=== PATIENT | male | born 1990 | race Caucasian/White ===

== ENCOUNTER → 2018-05-20 13:42 | Outpatient (CLI) | payer OTHER, SELFPAY ==
[2018-05-20 14:00] LABS: Basophils % 0.7 % (0.1-2.0); Eosinophils # 0.3 K/mm3 (0.0-0.4); Eosinophils % 5.9 % (0.1-12.0); Hematocrit 49.6 % (42.0-52.0); Hemoglobin 16.2 g/dL (14.1-18.0); Lymphocytes # 1.7 K/mm3 (0.7-4.5); Lymphocytes % 35.5 % (10-50); Mean Corpuscular HGB Conc 32.7 g/dL (31.8-35.4); Mean Corpuscular Hemoglobin 29.9 pg (27.0-31.2); Mean Corpuscular Volume 91.4 fl (80-94); Mean Platelet Volume 7.8 fl (7.4-10.4); Monocytes # 0.3 K/mm3 (0.1-1.0); Monocytes % 5.9 % (1.7-9.3); Neutrophils # 2.5 K/mm3 (1.8-7.8); Neutrophils % 51.9 % (37.0-80.0); Platelet Count 248 K/mm3 (142-424); Red Blood Count 5.43 M/mm3 (4.60-6.20); White Blood Count 4.8 K/mm3 (4.8-10.8)
[2018-05-20 14:37] LABS: Alanine Aminotransferase 109 U/L (12-78); Albumin Level 4.7 gm/dL (3.4-5.0); Albumin/Globulin Ratio 1.2 (1.1-1.8); Alkaline Phosphatase 58 U/L (46-116); Anion Gap 13.2 mEq/L (5-15); Aspartate Amino Transferase 32 U/L (15-37); Bilirubin,Total 0.6 mg/dL (0.2-1.0); Blood Urea Nitrogen 14 mg/dL (7-18); Calcium 9.4 mg/dL (8.5-10.1); Carbon Dioxide 28 mmol/L (21.0-32.0); Chloride 102 mmol/L (98-107); Chol/HDL Ratio 4.5 (1-3.5); Cholesterol 221 mg/dL (140-200); Creatinine,Serum 0.86 mg/dL (0.70-1.30); Estimated Glomerular Filt Rate 105 ml/min (>60); GFR (African American) 127 ML/MIN (>60); Glucose 100 mg/dL (74-106); HDL Cholesterol 49 mg/dL (27-67); LDL Cholesterol 149 mg/dL (0-130); Potassium 4.2 mmoL/L (3.5-5.1); Sodium 139 mmol/L (136-145); T4 (Thyroxine) 8.9 ug/dl (4.7-13.3); Thyroid Stimulating Hormone 3.08 uIU/ml (0.358-3.740); Total Protein,Serum 8.7 gm/dL (6.4-8.2); Triglycerides 113 mg/dL (30-200); VLDL Cholesterol 23 mg/dL (0-40)
[2018-05-21 09:21] LABS: Hep A Ab, IgM Negative (Negative); Hepatitis B Core Antibody IgM Negative (Negative); Hepatitis B Surface Antigen Negative (Negative)
[2018-05-21 11:14] LABS: Hepatitis C Antibody >11.0 s/co ratio (0.0-0.9); Vitamin D 25 Hydroxy 30.2 ng/mL (30.0-100.0)
== END ==
PROVIDERS: Visit Provider Nurse Practitioner Family
DX: R46.89 Other symptoms and signs involving appearance and behavior (principal); Z76.89 Persons encountering health services in other specified circumstances; F31.81 Bipolar II disorder
CPT/HCPCS: 80053; 80061; 80074; 82652; 84436; 84443; 85025

== ENCOUNTER → 2018-06-05 09:14 | Outpatient (CLI) | payer OTHER, SELFPAY ==
[2018-06-07 16:19] LABS: HCV Genotype Charge YES; Hepatitis C Genotype 1a (.)
== END ==
PROVIDERS: Visit Provider Nurse Practitioner Family
DX: R74.8 Abnormal levels of other serum enzymes (principal)
CPT/HCPCS: 36415; 87522; 87902

== ENCOUNTER → 2018-08-28 09:14 | Outpatient (CLI) | payer OTHER, SELFPAY ==
[2018-08-28 09:32] LABS: Basophils % 0.5 % (0.1-2.0); Eosinophils # 0.1 K/mm3 (0.0-0.4); Eosinophils % 2.7 % (0.1-12.0); Hematocrit 47.8 % (42.0-52.0); Hemoglobin 16.1 g/dL (14.1-18.0); Lymphocytes # 1.4 K/mm3 (0.7-4.5); Lymphocytes % 35.2 % (10-50); Mean Corpuscular HGB Conc 33.7 g/dL (31.8-35.4); Mean Corpuscular Hemoglobin 30.4 pg (27.0-31.2); Mean Corpuscular Volume 90.2 fl (80-94); Mean Platelet Volume 7.7 fl (7.4-10.4); Monocytes # 0.3 K/mm3 (0.1-1.0); Monocytes % 7.6 % (1.7-9.3); Neutrophils # 2.2 K/mm3 (1.8-7.8); Platelet Count 230 K/mm3 (142-424); Red Cell Distribution Width 12.7 % (11.5-17.5); White Blood Count 4.1 K/mm3 (4.8-10.8)
[2018-08-28 11:44] LABS: Alanine Aminotransferase 33 U/L (12-78); Albumin Level 4.2 gm/dL (3.4-5.0); Albumin/Globulin Ratio 1.2 (1.1-1.8); Alkaline Phosphatase 60 U/L (46-116); Anion Gap 14.1 mEq/L (5-15); Aspartate Amino Transferase 20 U/L (15-37); Bilirubin,Total 0.5 mg/dL (0.2-1.0); Blood Urea Nitrogen 21 mg/dL (7-18); Calcium 9.3 mg/dL (8.5-10.1); Carbon Dioxide 29 mmol/L (21.0-32.0); Chloride 105 mmol/L (98-107); Creatinine,Serum 1.02 mg/dL (0.70-1.30); Estimated Glomerular Filt Rate 86 ml/min (>60); GFR (African American) 104 ML/MIN (>60); Globulin 3.5 gm/dl (1.3-3.2); Glucose 84 mg/dL (74-106); Potassium 4.1 mmoL/L (3.5-5.1); Sodium 144 mmol/L (136-145); Total Protein,Serum 7.7 gm/dL (6.4-8.2)
== END ==
PROVIDERS: Visit Provider Nurse Practitioner
DX: B18.2 Chronic viral hepatitis C (principal)
CPT/HCPCS: 36415; 80053; 85025

== ENCOUNTER → 2018-09-03 08:26 | Outpatient (CLI) | payer OTHER, SELFPAY ==
--- NOTE | 2018-09-03 08:33 | US_ITS ---
US abdomen limited History:Undergoing treatment for hepatitis C Ordering Physician:Deshawn Briceno Patient Age: 28 years Comparison:None Findings: Pancreas:Unremarkable. No obvious mass or abnormal fluid collection. No ductal dilatation Liver:No focal liver lesions demonstrated. Homogeneous echogenicity. No intrahepatic biliary ductal dilatation evident Right Kidney:Unremarkable. The right kidney measures 12.0 x 4.3 x 6.1 cm and appears sonographically normal. Gallbladder:The gallbladder is normal size and there is a tiny amount biliary sludge layering along the dependent wall near the neck of the gallbladder. There is no definite gallstones seen. The common bile duct measures 3 mm.. Impression: Small amount biliary sludge otherwise unremarkable study
== END ==
PROVIDERS: PCP Physician Assistant; Visit Provider Internal Medicine
DX: B18.2 Chronic viral hepatitis C (principal)
CPT/HCPCS: 76705

== ENCOUNTER → 2018-10-17 08:16 | Outpatient (CLI) | payer OTHER, SELFPAY ==
[2018-10-17 08:37] LABS: Basophils % 0.3 % (0.1-2.0); Eosinophils # 0.1 K/mm3 (0.0-0.4); Eosinophils % 1.8 % (0.1-12.0); Hematocrit 48.2 % (42.0-52.0); Hemoglobin 16.6 g/dL (14.1-18.0); Lymphocytes % 24.4 % (10-50); Mean Corpuscular HGB Conc 34.4 g/dL (31.8-35.4); Mean Corpuscular Hemoglobin 31.3 pg (27.0-31.2); Mean Platelet Volume 7.4 fl (7.4-10.4); Monocytes # 0.4 K/mm3 (0.1-1.0); Monocytes % 9.4 % (1.7-9.3); Neutrophils # 2.6 K/mm3 (1.8-7.8); Neutrophils % 64.1 % (37.0-80.0); Platelet Count 210 K/mm3 (142-424); Red Cell Distribution Width 12.6 % (11.5-17.5); White Blood Count 4.1 K/mm3 (4.8-10.8)
== END ==
PROVIDERS: Visit Provider Nurse Practitioner
DX: B18.2 Chronic viral hepatitis C (principal)
CPT/HCPCS: 36415; 85025; 87522

== ENCOUNTER 2020-02-23 16:10 | Emergency (ER) | payer OTHER, SELFPAY ==
[2020-02-23 16:17] VITALS: BP 148/93; PULSE 76; RESP 17; TEMP 36.8; O2SAT 98; BMI 28.2
--- NOTE | 2020-02-23 16:25 | HMH.EDGENADL ---
ED Disposition Clinical Impression: Abdominal muscle strain Qualifiers: Encounter type: initial encounter Qualified Code(s): S39.011A - Strain of muscle, fascia and tendon of abdomen, initial encounter Disposition: Home, Self-Care Condition on Discharge: Good Instructions: DI for Groin Hernia, DI for Acute Abdomen Additional Instructions: You have been evaluated for perennial pain, concerning for a muscle strain. Please return to the emergency department if you have any new or worsening pain in your lower abdomen or testicles. Testicular pain could be concerning for an emergency like torsion. Follow-up with your primary care physician in 1 to 2 days for symptom recheck. Referrals: Candace Reis PA [Primary Care Provider] - Forms: Work/School Release Time of Disposition: 16:41 - Critical Care Critical Care Time: No Attestation: On , the high probability of a clinically significant, sudden or life threatening deterioration of the following system(s) required my full and direct attention, intervention and personal management. The time I documented below is in addition to time spent performing reported procedures but includes the following listed in this critical care notation. Medical Decision Making - Medical Records Medical records reviewed: Yes: I reviewed the patient's medical records. - Rick Inquiry Pt receiving controlled substance: No Vital Signs: 02/23/20 16:17 Temperature 98.2 F Temperature Source Oral Pulse Rate [Right Radial] 76 Respiratory Rate 17 Blood Pressure [Right Arm] 148/93 H Blood Pressure Mean [Right Arm] 111 02 Sat by Pulse Oximetry 98 Medical Decision Narrative: In summary this is a 29-year-old male presenting to the emergency department with pain in his perineum. Patient is clinically stable on arrival. Vital signs are within normal limits. Physical exam does not show evidence of inguinal hernia on the right or the left. No obvious abnormality in the skin of the perineum. Patient's primary concern was hernia, no evidence of incarceration or strangulation. I offered him laboratory work, urinalysis, CT scan to assess for possible nephrolithiasis, diverticulosis, intra-abdominal abscess. Patient deferred. Clinical presentation does not sound like torsion. He specifically denied any testicular pain. Counseled him to follow-up with his PCP. Given strict return precautions. General Adult HPI - General Chief complaint: Abdominal Pain Stated complaint: Possible Hernia Time Seen by Provider: 02/23/20 16:32 Mode of Arrival: Ambulatory Limitations: No Limitations Description of Symptoms (Recalled from ER Triage Doc. by RN): pt states that since 1500 yesterday after lifting a heavy object he is having pain in between his testicles and his anus. pt states that it is a pulling feeling. pt states that this has happened before but it just got better on its own. pt states that he doesnt know what to do about it and he missed work today because of it. - History of Present Illness HPI narrative: 29-year-old male presenting to the emergency department with lower abdominal pain. Symptoms started yesterday afternoon while he was lifting a heavy lawnmower. Pain did not happen exactly at the time but started about 20 minutes afterward. Described as a pain that starts near his perineum, feels like a tugging sensation. He is concerned that he may have a hernia. Nothing like this is ever happened before. No changes in bowel habits. No changes in urinary habits. No pain with ejaculation or penile discharge. No new sexual partners. No recent illness, fevers, chills, nausea, vomiting. Pain improved significantly in a matter of minutes. Currently has pain with leg motion, worse on the left. - Related Data Previous Rx's Medication Instructions Recorded Meclizine HCl [Meclizine 25mg Tab] 25 mg PO BID PRN 7 Days #14 tab 06/09/19 oxcarbazepine 600 mg tablet 900 mg PO BID #90 tab
[2020-02-23 17:07] VITALS: BP 125/87; PULSE 74; RESP 14; TEMP 36.8; O2SAT 99
== END 2020-02-23 17:07 | disposition home or self-care (01) ==
PROVIDERS: Emergency Provider Emergency Medicine; PCP Physician Assistant
DX: S39.011A Strain of muscle, fascia and tendon of abdomen, initial encounter (principal); Z87.891 Personal history of nicotine dependence; X50.0XXA Overexertion from strenuous movement or load, initial encounter; Y92.9 Unspecified place or not applicable
CPT/HCPCS: 99281

== ENCOUNTER 2021-02-09 15:12 | Emergency (ER) | payer OTHER, SELFPAY ==
[2021-02-09 16:45] VITALS: BP 140/80; PULSE 70; RESP 19; TEMP 36.8; O2SAT 98; BMI 31.1
--- NOTE | 2021-02-09 16:50 | HMH.EDUTC ---
[facility] [place] Impression: Exposure to COVID-19 virus Disposition: Home, Self-Care Condition on Discharge: Good Instructions: DI for COVID-19 (Suspected or Confirmed ), Preventing the Spread of Coronavirus Discharge Instructions Additional Instructions: *Monitor Temp, Over the counter Motrin or Tylenol as directed/as needed Tylenol every 4 hours and Motrin every 6 hours (as long as your family doctor has told you that you can take it) for fever or pain. and straight to ER if unable to lower temp less than 101.0 after medication given Follow up IMMEDIATELY for new or worsening symptoms or no Noticeable improvement over the next 48-72 hours. 911 for difficulty breathing or swallowing You were tested for today for COVID19 your test result should be back in the next 24-48 hours, you was given instructions on how to log on the [facility] portal for your results. If you do not have internet or access you may call the [facility]. You was given a handout with instructions for Self Quarantine and Self isolation for while you wait on test results and what to do if they are positive If you are positive the Health Dept will be contacting you also Make sure to take your Vitamins Vit. C Vit D and Zinc if you can take them Referrals: Candace Reis PA [Primary Care Provider] - As needed Forms: Work/School Release Time of Disposition: 16:51 Medical Decision Making - Rick Inquiry Pt receiving controlled substance: No Rick was queried for this patient: No Vital Signs: 02/09/21 16:45 Temperature 98.2 F Temperature Source Oral Pulse Rate [Right] 70 Respiratory Rate 19 Blood Pressure [Right Arm] 140/80 Blood Pressure Mean [Right Arm] 100 02 Sat by Pulse Oximetry 98 Orders (Tests/Meds): ORDERS Category Date Time Status Covid-19 Nasal PCR ([facility]) Routine Lab 02/09/21 16:36 [place] [facility] [place] - General Stated complaint: Covid test Time Seen by Provider: 02/09/21 16:51 Description of Symptoms (Recalled from Triage Doc. by RN): COVIDE EXPOSURE AT WORK, DENIES SYMPTOMS HEENT Symptoms (Recalled from RN notes): No Resp Symptoms (Recalled from RN notes): No Skin Symptoms (Recalled from RN notes): No MS Symptoms (Recalled from RN notes): No Functional Status (Recalled from RN notes): WNL - History of Present Illness Provider Complaint: Patient states that he had to get tested for COVID due to exposure State that his work called him and told him that he needed to get tested but is not having any symptoms - Related Data Previous Rx's Medication Instructions Recorded Meclizine HCl [Meclizine 25mg Tab] 25 mg PO BID PRN 7 Days #14 tab 06/09/19 oxcarbazepine 600 mg tablet 900 mg PO BID #90 tab 12/07/20 Allergies Allergy/AdvReac Type Severity Reaction Status Date / Time No Known Allergies Allergy Verified 02/09/21 16:48 - Worker's Comp Is this a Worker's Comp case?: No [facility] History - Hepatitis A Screen Drug use history?: No High risk sexual behaviors?: No History of sexually transmitted infection?: No Currently employed?: No Childcare worker?: No Do you have indoor plumbing?: Yes Do you have electricity?: Yes Attestation statement:: This patient has been screened for Hepatitis A risk factors. I have reviewed the patient's past medical history: Yes Medical History: Denies:: Cancer, Diabetes Mellitus Type 1, Diabetes Mellitus Type 2, Internal Pacemaker, MRSA Other Surgeries: Yes: Other. No: Pacemaker Amputation: No Fractures: Yes Comment: Right knee - Social History Smoking Status: Former smoker Alcohol Intake: never Substance Use Type: former substance user, heroin, opiates, crack/cocaine, IV drugs Occupational Status: employed Comment: none currently Family Hx:: No significant family history ROS Obtained: Yes All systems reviewed & no additional complaints, Yes Systems reviewed as appropriate & no additional complaints - Constitutional Constitutional: Reports system reviewed
[2021-02-09 17:22] VITALS: BP 140/80; PULSE 70; RESP 19; TEMP 36.8; O2SAT 98
== END 2021-02-09 17:23 | disposition home or self-care (01) ==
PROVIDERS: Emergency Provider Nurse Practitioner; PCP Physician Assistant
DX: Z20.822 Contact with and (suspected) exposure to COVID-19 (principal)
CPT/HCPCS: 99202; G0463; U0003

== ENCOUNTER → 2021-06-14 11:33 | Outpatient (CLI) | payer OTHER, SELFPAY | PROVIDERS: Visit Provider Nurse Practitioner | DX: U07.1 COVID-19 (principal) | CPT/HCPCS: C9803; U0003; U0005 ==

== ENCOUNTER → 2021-10-27 15:36 | Outpatient (CLI) | payer OTHER, SELFPAY ==
[2021-10-27 19:32] LABS: Semen Viscosity Watery (Normal); Volume,Semen 1.5 ml (2.0-5.0); WBCs,Semen Negative
[2021-10-27 19:33] LABS: 3Hr Motility Quality Rapid Progression (Mod-Rapid); 3Hr Sperm Motility 70 % (50-60); Motility Quality Rapid Progression (Mod-Rapid); Sperm Count 455 mil/mm3 (20-160); Sperm Morphology Normal (Normal); Sperm Motility 100 % (50-90)
== END ==
PROVIDERS: PCP Physician Assistant; Visit Provider Urology
DX: R86.8 Other abnormal findings in specimens from male genital organs (principal)
CPT/HCPCS: 89320

== ENCOUNTER 2022-01-21 23:11 | Emergency (ER) | payer OTHER, SELFPAY ==
[2022-01-21 23:13] VITALS: BP 163/107; PULSE 70; RESP 18; TEMP 36.8; O2SAT 98; BMI 31.1
--- NOTE | 2022-01-22 00:08 | HMH.EDEAR ---
ED Disposition Clinical Impression: Otitis media Qualifiers: Otitis media type: unspecified Chronicity: acute Qualified Code(s): H66.90 - Otitis media, unspecified, unspecified ear Otitis externa Qualifiers: Otitis externa type: unspecified type Chronicity: acute Laterality: left Qualified Code(s): H60.502 - Unspecified acute noninfective otitis externa, left ear Disposition: Home, Self-Care Condition on Discharge: Good Instructions: Middle Ear Infection Additional Instructions: use meds and see pcp for follow up Prescriptions: cephALEXin [cephALEXin 500mg capsule*] 500 mg PO TID #30 cap Transmission Status: Pending to [id number] predniSONE [Prednisone 20mg Tab] 20 mg PO BID #10 tab Transmission Status: P[facility] to [facility] Referrals: Candace Reis PA [Primary Care Provider] - - Critical Care Critical Care Time: No Attestation: On 01/21/22, the high probability of a clinically significant, sudden or life threatening deterioration of the following system(s) required my full and direct attention, intervention and personal management. The time I documented below is in addition to time spent performing reported procedures but includes the following listed in this critical care notation. Medical Decision Making - Medical Records Medical records reviewed: Yes: I reviewed the patient's medical records. - Rick Inquiry Pt receiving controlled substance: No Vital Signs: 01/21/22 23:13 Temperature 98.3 F Temperature Source Oral Pulse Rate [Right] 70 Respiratory Rate 18 Blood Pressure [Right Arm] 163/107 H Blood Pressure Mean [Right Arm] 125 02 Sat by Pulse Oximetry 98 Medical Decision Narrative: has otitis media and will give trial of meds and call pcp sunday Ear HPI - General Chief complaint: Ear Stated complaint: Hot liquid metal in ear; pain Time Seen by Provider: 01/22/22 00:08 Mode of Arrival: Ambulatory Source of Information: Patient, Medical Record Limitations: No Limitations Description of Symptoms (Recalled from ER Triage Doc. by RN): pt states on sunday night was using plasma cutter under truck and a piece of hot liquid fell into lt ear. today pt took a shower and got water into ear. pt c/o lt ear pain - History of Present Illness HPI Narrative: hot liquid lt ear with pain and swelling feeling with dec hearing MD Complaint: ear pain, decreased hearing Location: left ear Duration: constant Severity: moderate Discharge from ear: no Associated symptoms ear: decreased hearing Treatment prior to arrival: none - Related Data Previous Rx's Medication Instructions Recorded cetirizine 10 mg tablet 10 mg PO DAILY #30 tab 09/02/21 oxcarbazepine 600 mg tablet 900 mg PO BID #90 tab 10/26/21 cephALEXin [cephALEXin 500mg 500 mg PO TID #30 cap 01/22/22 capsule*] predniSONE [Prednisone 20mg 20 mg PO BID #10 tab 01/22/22 Tab] Allergies Allergy/AdvReac Type Severity Reaction Status Date / Time No Known Allergies Allergy Verified 10/27/21 15:10 [facility] History - Hepatitis A Screen Attestation statement:: This patient has been screened for Hepatitis A risk factors. I have reviewed the patient's past medical history: Yes Medical History: Denies:: Cancer, Diabetes Mellitus Type 1, Diabetes Mellitus Type 2, Internal Pacemaker, MRSA Other Surgeries: Yes: No Previous Surgery, Other. No: Pacemaker Amputation: No Fractures: Yes Comment: Right knee - Social History Smoking Status: Former smoker Alcohol Intake: never Substance Use Type: former substance user, heroin, opiates, crack/cocaine, IV drugs Occupational Status: employed Housing: house Household Members: significant other Comment: none currently Family Hx:: No significant family history ROS Obtained: Yes All systems reviewed & no additional complaints - Constitutional Constitutional: Denies fever(s) - Eyes Eyes: Denies change in vision - ENT Ears, Nose, Mouth, a
[2022-01-22 00:16] VITALS: BP 140/86; PULSE 88; RESP 16; TEMP 36.6; O2SAT 98
== END 2022-01-22 00:19 | disposition home or self-care (01) ==
PROVIDERS: Emergency Provider Emergency Medicine; PCP Physician Assistant
DX: H60.502 Unspecified acute noninfective otitis externa, left ear (principal)
CPT/HCPCS: 99283

== ENCOUNTER → 2022-09-26 09:21 | Outpatient (CLI) | payer OTHER, SELFPAY ==
--- NOTE | 2022-09-26 09:26 | XR_ITS ---
FINAL REPORT TECHNIQUE: Chest PA & Lateral CLINICAL HISTORY: cough FINDINGS: 2 views of the chest were performed. The heart size is normal. The mediastinum is within normal limits. There is mild left bronchial wall thickening. There are no pleural effusions. There is no pneumothorax. The bony thorax appears intact. IMPRESSION: Mild left bronchial wall thickening may represent bronchitis. Reviewed, Interpreted and Dictated by Yayo Dale III, MD Transcribed by Brant Smith Authenticated and [facility]
[2022-09-26 17:00] LABS: Adenovirus,PCR Not Detected (NotDetected); Bordetella Pertussis Not Detected (NotDetected); Chlamydophila Pneumoniae, PCR Not Detected (NotDetected); Coronavirus 19, PCR Not Detected (NotDetected); Coronavirus 229E Not Detected (NotDetected); Coronavirus NL63 Not Detected (NotDetected); Coronavirus OC43 Not Detected (NotDetected); Coronovirus HKU1,PCR Not Detected (NotDetected); Human Metapneumovirus Not Detected (NotDetected); Influenza A, PCR Not Detected (NotDetected); Influenza AH1, 2009 Not Detected (NotDetected); Influenza AH1, PCR Not Detected (NotDetected); Influenza AH3,PCR Not Detected (NotDetected); Influenza B, PCR Not Detected (NotDetected); Mycoplasma Pneumoniae, PCR Not Detected (NotDetected); Parainfluenza 1, PCR Not Detected (NotDetected); Parainfluenza 2, PCR Not Detected (NotDetected); Parainfluenza 3, PCR Not Detected (NotDetected); Parainfluenza 4, PCR Not Detected (NotDetected); Respiratory Syncytial Virus Not Detected (NotDetected)
[2022-09-26 21:35] LABS: Rhinovirus/Enterovirus Detected (NotDetected)
== END ==
PROVIDERS: PCP Physician Assistant; Visit Provider Student in an Organized Health Care Education/Training Program
DX: R05.9 Cough, unspecified (principal); B34.1 Enterovirus infection, unspecified
CPT/HCPCS: 71046; 87581; 87632; 87798; C9803; U0003; U0005

== ENCOUNTER 2023-07-22 22:20 | Emergency (ER) | payer OTHER, SELFPAY ==
[2023-07-22 22:21] VITALS: BP 122/105; PULSE 107; RESP 18; TEMP 37.1; O2SAT 100; BMI 32.5
[2023-07-22 22:40] VITALS: BMI 32.5
[2023-07-22 22:50] VITALS: BP 122/105; PULSE 107; RESP 18; TEMP 37.1; O2SAT 100
--- NOTE | 2023-07-22 22:51 | HMH.EDGENADL ---
Discharge Plan Disposition Patient Disposition: Home, Self-Care Prescriptions Prescriptions: New valacyclovir [Valtrex] 1 gram tablet 1,000 mg PO Q8H 7 Days Qty: 21 0RF sulfamethoxazole-trimethoprim [Bactrim DS] 800-160 mg tablet 1 tab PO BID 10 Days Qty: 20 0RF cephalexin 500 mg capsule 500 mg PO QID 10 Days Qty: 40 0RF No Action [id number] [Bromfed DM] 2-30-10 mg/5 mL syrup 5 ml PO Q4-6H PRN (Reason: sinus symptoms) Qty: 118 0RF oxcarbazepine 600 mg tablet 900 mg PO BID Qty: 90 5RF cefdinir 300 mg capsule 300 mg PO Q12H 10 Days Qty: 20 0RF Referrals Follow up/Referrals: Katie Landon MD [Referring] - See instructions Candace Reis PA [Primary Care Provider] - See instructions Activity Restrictions/Add. Instructions Additional Instructions/Restrictions: Your vesicular rash on your left thigh with surrounding erythema is nonspecific. This could be an adhesive related contact dermatitis from the recent bandage that she had after a tattoo. Additionally this could be a herpetic viral infection such as HSV or VZV. Viral cultures have been sent. Lastly it could be superimposed bacterial infection such as staph or strep and cultures have been sent from this for bacterial standpoint as well. This is nonspecific and nondiagnostic at this point and I would like for you to follow-up with our mental health associate Dr. Landon soon as possible. Please take your antibiotics and antiviral medications and follow-up with your viral and bacterial cultures with Dr. Landon or your primary care doctor and return with any worsening symptoms. Clinical Impressions Clinical Impression: Rash, vesicular, Cellulitis of left thigh Instructions Patient Instructions: DI for Skin Abscess Discharge ED Provider: Duglas Gama General Adult [facility] General Chief complaint: Skin/Abscess/Foreign Body Stated complaint: infection on left leg Time Seen by Provider: 07/22/23 22:21 Mode of Arrival: Ambulatory Source of Information: Patient Limitations: No Limitations Description of Symptoms (Recalled from ER Triage Doc. by RN): Patient recieved tattoo to left upper thigh approximately 2 weeks ago. An adhesive bandage was placed on tattoo and patient reports that early on a corner of the bandage was scratched and he had a small reddedned area to the tattoo. In the last two days the small area spread to the entirety of left upper thigh with fluid-filled vesicles. Patient also reports that he had began getting cold sores this last month which he had never had before. Patient reports rash is painful to touch, but no longer itchy. He has been experiencing chills and joint pain since last night. History of Present Illness HPI narrative: Patient is a 33-year-old male presents today with a rash on his left anterior thigh. States he got a tattoo 2 weeks ago he subsequently placed a adhesive bandage onto his leg and had some erythema surrounding the tattoo. He states that since that time it significantly worsened with surrounding erythema and vesicular rashes. He has had some itchiness but mainly significant pain. He also placed a second adhesive bandage onto this and it significantly worsened after that time. No definitive fevers or chills but has had some subjective symptoms concerning this. Related Data Previous Rx's Medication Instructions Recorded cbqegmwrkcxvqra-ghribsfkgkaxpcn-GJ 5 ml PO Q4-6H PRN sinus symptoms 04/12/23 2 mg-30 mg-10 mg/5 mL oral syrup #118 mL (Bromfed DM) oxcarbazepine 600 mg tablet 900 mg PO BID BIPOLAR #90 tabs 04/12/23 cefdinir 300 mg capsule 300 mg PO Q12H 10 days #20 caps 05/08/23 cephalexin 500 mg capsule 500 mg PO QID 10 days #40 caps 07/22/23 sulfamethoxazole 800 1 tab PO BID 10 days #20 tabs 07/22/23 mg-trimethoprim 160 mg tablet (Bactrim DS) valacyclovir 1 gram tablet 1,000 mg PO Q8H 7 days #21 tabs 07/22/23 (Valtrex) Allergies Allergy/AdvReac Type Severity Reaction Status Date / Time No Known Allergies Allergy Verified 04/12/23 08:38 [facility] Disclaimer: The information contained in this section may have been updated after the patient was seen, as this information can be updated by other users. Medical History Bipolar I disorder Foreign body in left ear Surgical History H/O right knee surgery Social History Smoking Status: Never smoker second hand exposure: No alcohol intake: never substance use type: former substance user, crack/cocaine, heroin, opiates and IV drugs current occupational status: employed Travel in the last 8 weeks: None household members: significant other housing: house number of children: 0 current occupational exposures/hazards: No caffeine: Yes ROS Obtained: Yes All systems reviewed & no additional complaints except as documented Physical Exam General General appearance: alert Respiratory Respiratory exam: Present normal lung sounds bilaterally Cardiovascular Cardiovascular exam: Present regular rate Expanded Lower Extremity Exam Left: Leg image: 1. left anterior thigh with numerous vesicular lesions and surrounding erythema Neurological Exam Neurological exam: Present alert and oriented X3 Medical Decision Making Rick Inquiry Pt receiving controlled substance: No Vital Signs: 07/22/23 22:21 07/22/23 22:50 Temperature 98.7 F 98.7 F Temperature Source Oral Oral Pulse Rate 107 H Pulse Rate [Left Radial] 107 H Respiratory Rate 18 18 Blood Pressure 122/105 H Blood Pressure [Right Arm] 122/105 H Blood Pressure Mean [Right Arm] 110 Blood Pressure Source Automatic Cuff Blood Pressure Source [Right Arm] Automatic Cuff Blood Pressure Position Sitting Blood Pressure Position [Right Arm] Sitting 02 Sat by Pulse Oximetry 100 Oxygen Delivery Method Room Air Room Air Orders (Tests/Meds): ORDERS Category Date Time Status Viral Culture, General Stat Micro 07/22/23 22:33 Ordered Wound Culture and Gram Stain Stat Micro 07/22/23 22:33 Ordered Medical Decision Narrative: 33-year-old male presents today with erythematous and vesicular rash on his left anterior thigh. Crosses multiple dermatomes this is unlikely to be VZV. He does have a history of cold sores this could be an HSV rash. Viral culture has been sent. He has significant surrounding erythema and tenderness over this area as well possible this is also strep or staph infection and drainage has been cultured. Lastly and probably most likely this is contact dermatitis from recent adhesive use following his recent tattoo. Nonetheless we will treat for possible bacterial or herpetic cause with Bactrim Keflex and valacyclovir. Cultures have been sent has been advised to follow-up with our mental health associate or his primary care doctor to ensure resolution of his symptoms and return precautions emphasized. Critical Care Critical Care Time Critical Care Time: No
--- NOTE | 2023-07-26 11:56 | PC.NURSE ---
Addendum entered by Amanda Trevino RN 07/26/23 11:56: NTD at this time Original Note: discussed wound culture results with , pt dc with cephalexin and bactrim DS
== END 2023-07-22 22:51 | disposition home or self-care (01) ==
PROVIDERS: Emergency Provider Student in an Organized Health Care Education/Training Program; PCP Physician Assistant
DX: L03.116 Cellulitis of left lower limb (principal); R21 Rash and other nonspecific skin eruption; F31.89 Other bipolar disorder
CPT/HCPCS: 87070; 87205; 87252; 99283

== ENCOUNTER 2023-09-12 10:22 | Outpatient (CLI) | payer OTHER, SELFPAY ==
[2023-09-12 18:31] LABS: Basophils # 0.1 K/mm3 (0-0.2); Eosinophils # 0.1 K/mm3 (0.0-0.4); Hematocrit 45.9 % (42.0-52.0); Hemoglobin 15.2 g/dL (14.1-18.0); Lymphocytes # 1.6 K/mm3 (0.7-4.5); Lymphocytes % 32.1 % (10-50); Mean Corpuscular HGB Conc 33.2 g/dL (31.8-35.4); Mean Corpuscular Hemoglobin 31.6 pg (27.0-31.2); Mean Corpuscular Volume 95.2 fl (80-94); Mean Platelet Volume 8.9 fl (7.4-10.4); Monocytes # 0.3 K/mm3 (0.1-1.0); Monocytes % 6.7 % (1.7-9.3); Neutrophils # 2.9 K/mm3 (1.8-7.8); Neutrophils % 59.3 % (37.0-80.0); Platelet Count 228 K/mm3 (142-424); Red Blood Count 4.82 M/mm3 (4.60-6.20); Red Cell Distribution Width 13.4 % (11.5-17.5); White Blood Count 4.8 K/mm3 (4.8-10.8)
[2023-09-12 18:57] LABS: Alanine Aminotransferase 98 U/L (12-78); Albumin Level 4.7 g/dl (3.5-5.0); Albumin/Globulin Ratio 1.8 (1.1-1.8); Alkaline Phosphatase 62 U/L (38-126); Anion Gap 12.9 mEq/L (5-15); Aspartate Amino Transferase 52 U/L (17-59); Bilirubin,Total 0.4 mg/dl (0.2-1.3); Blood Urea Nitrogen 20 mg/dl (9-20); Calcium 9.5 mg/dl (8.4-10.2); Carbon Dioxide 28 mmol/L (22.0-30.0); Chloride 103 mmol/L (98-107); Chol/HDL Ratio 8.2 (1-3.5); Cholesterol 253 mg/dl (140-200); Estimated Glomerular Filt Rate 86 ml/min (>60); GFR (African American) 103 ML/MIN (>60); Globulin 2.6 g/dL (1.3-3.2); Glucose 89 mg/dl (74-100); HDL Cholesterol 31 mg/dl (40-60); Potassium 3.9 mmoL/L (3.5-5.1); Sodium 140 mmol/L (136-145); Total Protein,Serum 7.3 g/dl (6.3-8.2); Triglycerides 252 mg/dl (30-150); VLDL Cholesterol 50 mg/dL (0-40)
[2023-09-12 19:09] LABS: Direct LDL Cholesterol 154.91 mg/dL (100-129)
[2023-09-12 19:16] LABS: Hemoglobin A1C 5.7 % (4.0-6.0)
[2023-09-12 20:01] LABS: 25-OH Vitamin D, Total 28.3 ng/mL (30-100)
[2023-09-13 09:43] LABS: Vitamin B12 487 pg/mL (239-931)
== END 2023-09-12 23:59 | disposition home or self-care (01) ==
LOC: LAB.DROPOF 09-13 10:22
PROVIDERS: Visit Provider Family Medicine
DX: R53.83 Other fatigue (principal); E55.9 Vitamin D deficiency, unspecified; D75.89 Other specified diseases of blood and blood-forming organs; Z68.32 Body mass index [BMI] 32.0-32.9, adult
CPT/HCPCS: 80053; 80061; 82306; 82607; 83036; 84443; 85025

== ENCOUNTER 2023-09-20 15:40 | Outpatient (CLI) | payer OTHER, SELFPAY ==
[2023-09-20 16:35] LABS: Alanine Aminotransferase 70 U/L (12-78); Albumin Level 4.9 g/dl (3.5-5.0); Alkaline Phosphatase 56 U/L (38-126); Aspartate Amino Transferase 42 U/L (17-59); Bilirubin,Direct 0.1 mg/dl (0.0-0.4); Bilirubin,Indirect 0.2 mg/dL (0.0-0.9); Bilirubin,Total 0.3 mg/dl (0.2-1.3); Bilirubin,Unconjugated 0.2 mg/dL (0.0-1.1); Total Protein,Serum 7.4 g/dl (6.3-8.2)
[2023-09-25 16:13] LABS: HBsAg Screen Negative (Negative); HCV Ab Reactive (Non Reactive); Hep A Ab, IGM Negative (Negative); Hep B Core Ab, IgM Negative (Negative)
== END 2023-09-20 23:59 | disposition home or self-care (01) ==
LOC: LAB 15:40
PROVIDERS: PCP Physician Assistant; Visit Provider Family Medicine
DX: F19.21 Other psychoactive substance dependence, in remission (principal)
CPT/HCPCS: 36415; 80074; 80076; 87522

== ENCOUNTER 2024-05-14 08:00 | Outpatient (RCR) | payer OTHER, SELFPAY | END 2024-05-14 23:59 | disposition home or self-care (01) | LOC: OT 08:00 | PROVIDERS: Visit Provider Plastic Surgery | DX: M25.532 Pain in left wrist (principal); Z98.890 Other specified postprocedural states | CPT/HCPCS: 97014; 97110; 97140; 97165; G0283 ==

== ENCOUNTER 2024-11-26 11:35 | Emergency (ER) | payer OTHER, SELFPAY ==
--- NOTE | 2024-11-26 11:42 | XR_ITS ---
FINAL REPORT CLINICAL HISTORY: base of 5th MT pain 6 weeks ago FINDINGS: RIGHT FOOT 3 views of the right foot were obtained. There is a subacute, transverse fracture at the base of the fifth metatarsal with mild displacement at the 2 mm or less. Remaining osseous structures are unremarkable. IMPRESSION: Minimally displaced fracture at the base of the fifth metatarsal with a subacute appearance. Reviewed, Interpreted and Dictated by Brigitte Howell MD Transcribed by Mayuri Slater Authenticated and [facility]
[2024-11-26 11:45] VITALS: BP 155/101; PULSE 95; RESP 15; TEMP 36.9; O2SAT 18; BMI 31.8
--- NOTE | 2024-11-26 11:53 | HMH.EDGENADL ---
Discharge Plan Disposition Patient Disposition: Home, Self-Care Prescriptions Prescriptions: No Action Rexulti 1 mg tablet 0RF Rexulti 0.5 mg (7)- 1 mg (7) tablets,dose pack 0RF atorvastatin [Lipitor] 10 mg tablet 10 mg PO HS Qty: 30 2RF Referrals Follow up/Referrals: Provider,Referral, [Primary Care Provider, Medical] - See instructions Tiago Parnell DO [Staff Physician, Orthopedics] - See instructions Activity Restrictions/Add. Instructions Additional Instructions/Restrictions: Tylenol and Motrin for pain. Wear boot at all times while bearing weight. Follow-up with Dr. Parnell, while wearing boot, should heal, but given has been prolonged time, you may end up with nonunion and potentially surgery. Wearing boot will give you most likely chance of healing without surgery. Clinical Impressions Clinical Impression: [place]ina fracture Print Language Print Language: Spanish Discharge ED Provider: Osmany Coronado General Adult HPI General Chief complaint: Extremity Injury, Lower Stated complaint: AO-09/2024- pain R foot Time Seen by Provider: 11/26/24 11:38 History of Present Illness HPI narrative: Please note that above description of symptoms, in this electronic medical record under categorization of recalled from ER triage doctor by RN are reflective of an initial nursing assessment, however, is not reflective of my full history and physical exam that was personally taken and clarified. Consequentially, this preceding description of symptoms, which may include the patient's categorized chief complaint in the EMR, do not reflect my personal clinical impression, and the ultimate description of history of present illness and patient stated complaints should be deferred to this section of the note. Unless stated otherwise or congruent with this section of the note, additional signs, symptoms, or incongruence should be interpreted as inaccurate with my clinical impression. Related Data Previous Rx's ?Medication ?Instructions ?Recorded atorvastatin 10 mg tablet (Lipitor) 10 mg PO HS #30 tabs 09/14/23 Allergies Allergy/AdvReac Type Severity Reaction Status Date / Time No Known Allergies Allergy Verified 11/26/24 09:45 [facility] Disclaimer: The information contained in this section may have been updated after the patient was seen, as this information can be updated by other users. Medical History Otitis externa Exposure to COVID-19 virus Abdominal muscle strain Sty Otitis media Dizziness Overdose Foreign body in left ear Rash, vesicular Cellulitis of left thigh Bipolar I disorder Surgical History H/O right knee surgery Social History Smoking Status: Never smoker second hand exposure: No alcohol intake: never substance use type: former substance user, crack/cocaine, heroin, opiates and IV drugs current occupational status: employed Travel in the last 8 weeks?: None household members: significant other housing: house number of children: 0 current occupational exposures/hazards: No caffeine: Yes Have you lived/traveled outside US in past 30 days?: No Contact w/someone who lives/traveled outside US past 30 days?: No Exposure to someone with infectious disease in past 14 days?: No Do you have a fever (greater than 100.4 F or 38 C)?: No Have you tested positive for COVID-19?: No Exposed to someone with COVID-19 in past 14 days?: No Do you have a sore throat?: No Do you have a cough?: No Do you have any weakness?: No Do you have any diarrhea?: No Are you experiencing any unusual bleeding?: No Do you have any muscle aches/pain?: No Do you have any abdominal pain?: No Are you experiencing loss of taste or smell?: No Other Medical History Have you received the Flu Vaccine for this season: No Have you received the Pneumonia Vaccine: No ROS Obtained: Yes All systems reviewed & no additional complaints except as documented Physical Exam General General appearance: alert Head Head exam: atraumatic and normocephalic Eye Eye exam: Present normal appearance, PERRL and EOMI Neck Neck exam: Present normal inspection, full ROM and trachea midline Respiratory Respiratory exam: Absent respiratory distress, wheezes, stridor, accessory muscle use or prolonged expiratory phase Cardiovascular Cardiovascular exam: Present other (Pulses equal symmetric in upper and lower extremities) Abdominal Exam Abdominal exam: Present soft; Absent distention, tenderness or pulsatile mass Extremities Exam Extremities exam: Present other (Tenderness base of fifth metatarsal on the right. No outward signs of abnormality); Absent edema Neurological Exam Neurological exam: Present alert, oriented X3 and CN II-XII intact; Absent motor sensory deficit Skin Skin exam: Present warm and dry; Absent diaphoresis or erythema Medical Decision Making Medical Records Medical records reviewed: Yes I reviewed the patient's medical records. Screening: Per USPSTF and CDC recommendations, given the prevalence of disease in our region, it is our hospital?s policy to screen for HIV and viral Hepatitis for all patients aged 18 and over and those with ongoing risk factors. Rick Inquiry Pt receiving controlled substance: No Rick was queried for this patient: No Vital Signs: 11/26/24 11:45 Temperature 98.4 F Temperature Source Oral Pulse Rate [Right Radial] 95 H Respiratory Rate 15 Blood Pressure [Right Arm] 155/101 H Blood Pressure Mean [Right Arm] 119 Blood Pressure Source [Right Arm] Automatic Cuff Blood Pressure Position [Right Arm] Supine 02 Sat by Pulse Oximetry 18 L Oxygen Delivery Method Room Air Orders (Tests/Meds): ORDERS Category Date Time Status Foot XR right minimum 3 views [XR foot RT min 3V] Stat Exams 11/26/24 11:42 Taken HIV Combo Stat Lab 11/26/24 11:53 Ordered Hepatitis C Ab Qual. W/ RFX Stat Lab 11/26/24 11:53 Ordered Medical Decision Narrative: This is a 34-year-old male presenting with right foot pain. He states about 6 weeks ago he stepped off a curb wrong, felt and heard an audible pop in the right side of his foot. Had pain at the time, mild to moderate in intensity. Still present, has gotten a little bit better, but still bothering him, so he came in for further evaluation. No further trauma to the area. Tylenol and Motrin seem to help. History obtained the patient. On arrival, neurovascularly intact, very clinically well, range of motion intact and ambulatory on the area. Base of metatarsal tenderness along the fifth metatarsal. No outward signs of abnormality. No bruising. Differential includes fracture, sprain, strain, among others. X-rays to be obtained. On independent interpretation, patient has base of fifth metatarsal fracture, zone 1. Boot was placed. Patient requires orthopedic bracing due to weakness or deformity requiring stabilization. The use of this brace will benefit the patient's functionality and prevent further injury. Outpatient follow-up with Dr. Parnell was recommended. He voiced his understanding. Because patient at baseline without signs or symptoms of clinical decompensation, deemed appropriate for discharge. Results were relayed to patient who voiced understanding and were agreeable to outpatient management and follow up. I discussed my clinical impression with patient and answered all questions. At this time, the evidence for any other entities in the differential is insufficient to warrant any further testing or ED observation. This was explained as well. Advisory was given that persistent or worsening symptoms require further evaluation. I confirmed the understanding of this discussion. Chip Applying Machine Tender disclaimer Much of this encounter note is an electronic regulatory compliance officer spoken language to printed text. Electronic regulatory compliance officer of the spoken language may permit errors. Although I have reviewed the note, some errors may still exist. Critical Care Critical Care Time Critical Care Time: No
[2024-11-26 12:16] VITALS: BP 155/86; PULSE 85; RESP 15; TEMP 36.9; O2SAT 99
== END 2024-11-26 12:17 | disposition home or self-care (01) ==
PROVIDERS: Emergency Provider Emergency Medicine
DX: S92.351A Displaced fracture of fifth metatarsal bone, right foot, initial encounter for closed fracture (principal); W10.1XXA Fall (on)(from) sidewalk curb, initial encounter
CPT/HCPCS: 73630; 99283

== ENCOUNTER 2024-12-10 14:20 | Outpatient (CLI) | payer OTHER, SELFPAY ==
--- NOTE | 2024-12-10 14:21 | XR_ITS ---
FINAL REPORT CLINICAL HISTORY: fx follow up COMPARISON: 11/26/2024 FINDINGS: RIGHT FOOT 3 views of the right foot were obtained. There is a transverse fracture of the base of the fifth metatarsal, similar to the prior exam of 11/26/2024. Visualized joint spaces are normally aligned. Soft tissues are unremarkable. IMPRESSION: No significant change in the transverse fracture of the base of the fifth metatarsal, similar to the prior exam of 11/26/2024. Reviewed, Interpreted and Dictated by Etienne Linares MD Transcribed by Linda Armenta Authenticated and [facility]
== END 2024-12-10 23:59 | disposition home or self-care (01) ==
LOC: RAD 14:20
PROVIDERS: Visit Provider Physician Assistant
DX: S92.351A Displaced fracture of fifth metatarsal bone, right foot, initial encounter for closed fracture (principal); X58.XXXA Exposure to other specified factors, initial encounter
CPT/HCPCS: 73630

== ENCOUNTER 2025-01-08 08:33 | Outpatient (CLI) | payer OTHER, SELFPAY ==
--- NOTE | 2025-01-08 08:34 | XR_ITS ---
FINAL REPORT CLINICAL HISTORY: right foot pain after fall, f/u COMPARISON: 12/10/2024 FINDINGS: RIGHT FOOT Three views were obtained. Fracture line at the base of the fifth metatarsal is less evident on today's exam consistent with healing fracture. IMPRESSION: Healing fracture at the base of the fifth metatarsal. Reviewed, Interpreted and Dictated by Etienne Linares MD Transcribed by Rowena Bird Authenticated and [facility]
--- OUTSIDE RECORDS SUMMARY | 2025-01-08 08:35 | XMS_ITS | Clinical Summary ---
Author Organization [facility] Address [address] [place] [address] Care Team Providers Care Appointment Scheduler Name Role Phone Provider, No Known Primary Care Provider Unavail able Allergies No known active allergies Medications OXcarbazepine (TRILEPTAL) 600 MG tablet 12/21/2023 Active acetaminophen (Tylenol) 325 MG tablet Take 2 tablets by mouth Every 6 (Six) Hours As Needed for Moderate Pain. 100 tablet 1 02/12/2024 Active Active Problems No known active problems Family History Relation Name Status Comments Father Alive Mother Alive Social History Tobacco Use Types Packs/Day Years Used Date Smoking Tobacco: Former Cigarettes Smokeless Tobacco: Never Tobacco Cessation:Counseling Given: Not Answered Alcohol Use Standard Drinks/Week Comments Never 0 (1 standard drink = 0.6 oz pur e alcohol) Sex and Gender Information Value Date Recorded Sex Assigned at Not on file Legal Sex Male 10:51 AM EDT Gender Identity Not on file Sexual Orientation Not on file Last Filed Vital Signs Vital Sign Reading Time Taken Comments Blood Pressure 145/100 01/09/2024 7:43 AM EDT Pulse - - Temperature 36.5 C (97.7 F) 02/25/2024 7:38 AM EDT Respiratory Rate - - Oxygen Saturation - - Inhaled Oxygen Concentration - - Weight 105 kg (232 lb) 01/09/2024 7:43 AM EDT Height 177.8 cm (5' 10 ) 01/09/2024 7:43 AM EDT Body Mass Index 33.29 01/09/2024 7:43 AM EDT Plan of Treatment Health Maintenance Due Date Last Done Comments ANNUAL PHYSICAL 12/24/2023 HEPATITIS C SCREENING 12/24/2023 COVID-19 Vaccine (1 - 2023-2 5 season) 2024 INFLUENZA VACCINE 03/04/2025 TDAP/TD VACCINES (3 - Td or Tdap) 02/21/2029 02/21/2019, 12/22/2003 Pneumococcal Vaccine 0-49 Aged Out No longer eligible based on patient's age to complete this topic Insurance [facility] Care Teams Appointment Scheduler Relationship Specialty Start Date End Date Provider, No Known [facility] [place] [address] PCP - General 02/25/24
== END 2025-01-08 23:59 | disposition home or self-care (01) ==
LOC: RAD 08:33
PROVIDERS: Visit Provider Physician Assistant
DX: S92.351D Displaced fracture of fifth metatarsal bone, right foot, subsequent encounter for fracture with routine healing (principal); W19.XXXD Unspecified fall, subsequent encounter
CPT/HCPCS: 73630

== ENCOUNTER → 2025-01-08 09:10 | Outpatient (RCR) | payer OTHER, SELFPAY | LOC: PT 09:10 | PROVIDERS: Visit Provider Physician Assistant | DX: S92.352D Displaced fracture of fifth metatarsal bone, left foot, subsequent encounter for fracture with routine healing (principal) | CPT/HCPCS: 97760 ==

== ENCOUNTER 2025-01-19 18:32 | Emergency (ER) | payer OTHER, SELFPAY ==
[2025-01-19 18:43] VITALS: BP 158/89; PULSE 77; RESP 18; TEMP 36.9; O2SAT 94; BMI 4686.6
--- OUTSIDE RECORDS SUMMARY | 2025-01-19 19:20 | XMS_ITS | Clinical Summary ---
Author Organization [facility] Address [address] [place] [address] Care Team Providers Care Infant Caregiver Name Role Phone Provider, No Known Primary [...] patient's age to complete this topic Insurance [facility] Care Teams Infant Caregiver Relationship Specialty Start Date End Date Provider, No Known [facility] [place] [address] PCP - General 02/25/24
[2025-01-19] MEDS: LIDOCAINE 1% 10ML MDV 10 ML IJ (21:30)
--- NOTE | 2025-01-19 21:32 | ED_ITS ---
Discharge Plan Disposition Patient Disposition: Home, Self-Care Prescriptions Prescriptions: No Action Rexulti 1 mg tablet 1 mg PO QHS Qty: 30 2RF Referrals Follow up/Referrals: Provider,Referral, MD [Primary Care Provider, Medical] - See instructions Activity Restrictions/Add. Instructions Additional Instructions/Restrictions: Keep the wound clean by using gentle soap and water. The sutures will need to be removed in 10 to 14 days, which can be done at an urgent treatment center, primary care office or in the emergency department. If you develop signs of infection, such as pus draining from the wound, increased redness or swelling, fever, or if you become concerned for your health for any reason, return to the emergency department for evaluation. Clinical Impressions Clinical Impression: Finger laceration Instructions Patient Instructions: DI for Laceration Repair Print Language Print Language: Albanian Discharge ED Provider: Justus El General Adult HPI General Chief complaint: Wound/Laceration Stated complaint: AO 01/19/25 Laceration left middle finger Time Seen by Provider: 01/19/25 20:51 Mode of Arrival: Ambulatory Source of Information: Patient Description of Symptoms (Recalled from ER Triage Doc. by RN): pt presents to the er for a laceration to his L middle finger, states he cut it on a piece of copper, pt is currently holding pressure on wound to control the bleeding, laceration is about 2 inches wide, denies blood thinners, tdap is up to date per patient History of Present Illness HPI narrative: Reinier Ayala is a 34-year-old male who presents to the emergency department for complaints of a laceration to his left middle finger. Patient states that prior to arrival, he was cutting copper when he ended up slicing his palmar aspect of the distal phalanx of the left middle finger. He reports that his tetanus shot is up-to-date. Related Data Previous Rx's ?Medication ?Instructions ?Recorded brexpiprazole 1 mg tablet (Rexulti) 1 mg PO QHS #30 ta bs 12/29/24 Allergies Allergy/AdvReac Type Severity Reaction Status Date / Time No Known Allergies Allergy Verified 01/08/25 08:56 [facility] Disclaimer: The information contained in this section may have been updated after the patient was seen, as this information can be updated by other users. Medical History Otitis externa Exposure to COVID-19 virus Abdominal muscle strain Sty Otitis media Dizziness Overdose Foreign body in left ear Rash, vesicular Cellulitis of left thigh Bipolar I disorder Surgical History H/O right knee surgery Social History Smoking Status: Never smoker second hand exposure: No alcohol intake: never substance use type: former substance user, crack/cocaine, heroin, opiates and IV drugs current occupational status: employed Travel in the last 8 weeks?: None household members: significant other housing: house number of children: 0 current occupational exposures/hazards: No caffeine: Yes Have you lived/traveled outside US in past 30 days?: No Contact w/someone who lives/traveled outside US past 30 days?: No Exposure to someone with infectious disease in past 14 days?: No Do you have a fever (greater than 100.4 F or 38 C)?: No Have you tested positive for COVID-19?: No Exposed to someone with COVID-19 in past 14 days?: No Do you have a sore throat?: No Do you have a cough?: No Do you have any weakness?: No Do you have any diarrhea?: No Are you experiencing any unusual bleeding?: No Do you have any muscle aches/pain?: No Do you have any abdominal pain?: No Are you experiencing loss of taste or smell?: No Other Medical History Have you received the Flu Vaccine for this season: No Have you received the Pneumonia Vaccine: No ROS Obtained: Yes Systems reviewed as appropriate & no additional complaints except as documented Physical Exam General General appearance: alert and in no apparent distress Head Head exam: atraumatic Eye Eye exam: Present normal appearance ENT ENT exam: Present normal external ear exam Neck Neck exam: Present full ROM Chest Chest inspection: Present symmetric chest wall rise Respiratory Respiratory exam: Present normal lung sounds bilaterally; Absent respiratory distress Cardiovascular Cardiovascular exam: Present regular rate and normal rhythm Abdominal Exam Abdominal exam: Present soft; Absent tenderness or guarding exam: Present deferred Extremities Exam Extremities exam: Present normal inspection Expanded Upper Extremity Exam Left: Hand L/R front image: 2 1. laceration Back Exam Back exam: Present normal inspection Neurological Exam Neurological exam: Present alert and oriented X3 Psychiatric Psychiatric exam: Present normal affect Skin Skin exam: Present warm and dry Medical Decision Making Medical Records Screening: Per USPSTF and CDC recommendations, given the prevalence of disease in our region, it is our hospital?s policy to screen for HIV and viral Hepatitis for all patients aged 18 and over and those with ongoing risk factors. Rick Inquiry Pt receiving controlled substance: No Vital Signs: 01/19/25 18:43 01/19/25 21:45 Temperature 98.5 F 98.5 F Temperature Source Oral Oral Pulse Rate 60 Pulse Rate [Left Radial] 77 Respiratory Rate 18 18 Blood Pressure 124/75 Blood Pressure [Right Arm] 158/89 H Blood Pressure Mean [Right Arm] 112 Blood Pressure Source Automatic Cuff Blood Pressure Source [Right Arm] Automatic Cuff Blood Pressure Position Sitting Blood Pressure Position [Right Arm] Sitting 02 Sat by Pulse Oximetry 94 L Oxygen Delivery Method Room Air Room Air Orders (Tests/Meds): ED MEDICATIONS Discontinued Medications Generic Name Dose Route Start Last Admin Trade Name Freq PRN Reason Stop Dose Admin Lidocaine HCl 10 ml 01/19/25 20:57 01/19/25 21:30 Lidocaine 1% 10ml Mdv IJ 01/19/25 20:58 10 ml ONCE ONE Administration Medical Decision Narrative: Reinier Ayala is a 34-year-old male who presents to the emergency department for complaints of a laceration to his left middle finger. Patient states that prior to arrival, he was cutting copper when he ended up slicing his palmar aspect of the distal phalanx of the left middle finger. He reports that his tetanus shot is up-to-date. On arrival, patient is hemodynamically stable, in no acute distress, breathing comfortably on room air. Physical exam, as stated above, revealed overall well-appearing male in no distress. He has a laceration over the palmar aspect of the left third digit at the distal phalanx. It is a semicircular laceration with edges that approximate well. Bleeding is controlled at this time. Full range of motion in all joint spaces. Good capillary refill. X-ray imaging was considered, however there is low concern for bony involvement or retained foreign body at this time and x-ray imaging was deferred. Patient states that his tetanus shot is up-to-date. Will perform digital block using lidocaine and repaired the wound with sutures. Six 5-0 nylon sutures were used after adequate anesthesia with digital block were used. See procedure notes for details. Patient was instructed to keep the wound clean by using gentle soap and water. Return precautions were given for any signs of infection. He is made aware that sutures will need to be removed in 10 to 14 days. All questions were answered. He demonstrated understanding and was in agreement this plan. He was then discharged from the emergency department in stable condition. Procedures Laceration Laceration 1: Site: finger (left middle palmar distal phalanx) Side (If applicable): left Size (cm): 3 Description: linear Depth: simple, single layer Pre-repair: irrigated extensively Skin layer closed with: nylon Size (cm): 5-0 Number of sutures: 6 Technique: simple, interrupted Nerve Block Nerve Block 1: Local Anesthetic: lidocaine 1% Amount of anesthesia used (mL): 9 Side: Left Nerve Blocks: digital (3rd digit) Procedure Successful: Yes Patient Tolerated Procedure: well and no complications Complications: none Critical Care Critical Care Time Critical Care Time: No
[2025-01-19 21:45] VITALS: BP 124/75; PULSE 60; RESP 18; TEMP 36.9; O2SAT 98
== END 2025-01-19 21:46 | disposition home or self-care (01) ==
PROVIDERS: Emergency Provider Student in an Organized Health Care Education/Training Program
DX: S61.213A Laceration without foreign body of left middle finger without damage to nail, initial encounter (principal); W26.8XXA Contact with other sharp object(s), not elsewhere classified, initial encounter
CPT/HCPCS: 12002; 99282; 99283; J2003